=== PATIENT | female | born 1970 | race Caucasian/White ===

== ENCOUNTER → 2016-08-18 | Outpatient (CLI) | payer BC ==
[2016-08-18 16:49] LABS: Basophils % (A) 0 %; CH 32.2; CHCM 34.2; Eosinophils # (A) 0.1 k/uL (0-0.7); Eosinophils % (A) 2 %; HCT 43.9 % (34.0-46.0); HDW 2.39; HGB 14.4 gm/dL (11.4-16.0); Luc % (Auto) 3; Lymphocytes # (A) 2.9 k/uL (1.0-4.8); Lymphocytes % (A) 43 %; MCH 31.1 pg (25.0-35.0); MCHC 32.9 g/dL (31.0-37.0); MCV 94.4 fL (80.0-100.0); Mean Platelet Volume 6.3; Monocytes # (A) 0.3 k/uL (0-1.0); Monocytes % (A) 5 %; Neutrophils # (A) 3.2 k/uL (1.3-7.7); Neutrophils % (A) 47 %; RBC 4.65 m/uL (3.80-5.40); RDW 12.3 % (11.5-15.5); WBC 6.7 k/uL (3.8-10.6); WBC (Perox) 6.54
[2016-08-18 16:58] LABS: ALT 25 U/L (9-52); AST 19 U/L (14-36); Alkaline Phosphatase 58 U/L (38-126); Anion Gap 10 mmol/L; Blood Urea Nitrogen 10 mg/dL (7-17); C Reactive Protein <5.0 mg/L (<10.0); Carbon Dioxide 25 mmol/L (22-30); Chloride 105 mmol/L (98-107); Glucose 102 mg/dL (74-99); Non-African American GFR(MDRD) >60 (>60 ml/min/1.73 sqM); Potassium 3.9 mmol/L (3.5-5.1); Rheumatoid Factor, Qnt <9 IU/mL (<12); Sodium 140 mmol/L (137-145); Total Bilirubin 0.6 mg/dL (0.2-1.3); Total Protein 6.7 g/dL (6.3-8.2); Uric Acid 3.2 mg/dL (3.7-7.4)
[2016-08-18 17:43] LABS: Vitamin B12 459 pg/mL (239-931)
[2016-08-18 18:22] LABS: Erythrocyte Sedimentation Rate 5 mm/hr (0-20)
[2016-08-19 00:40] LABS: ANA w/Reflex to Titer NEGATIVE (NEGATIVE)
== END | disposition home or self-care (01) ==
LOC: LABWHC1 16:07
PROVIDERS: ATTEND Internal Medicine
DX: M15.0 Primary generalized (osteo)arthritis (principal); E03.9 Hypothyroidism, unspecified; E55.9 Vitamin D deficiency, unspecified; R53.83 Other fatigue
CPT/HCPCS: 36415; 80053; 82306; 82607; 84443; 84550; 85025; 85652; 86038; 86140; 86431

== ENCOUNTER → 2017-04-22 | Outpatient (CLI) | payer BC ==
--- NOTE | 2017-04-22 12:44 | US ---
EXAMINATION TYPE: US venous doppler duplex LE DATE OF EXAM: 04/22/2017 11:29 AM COMPARISON: NONE CLINICAL HISTORY: Leg Swelling M79.673/M25.579. Pt states bilateral leg swelling SIDE PERFORMED: Bilateral TECHNIQUE: The lower extremity deep venous system is examined utilizing real time linear array sonog wilbert with graded compression, doppler sonography and color-flow sonography. VESSELS IMAGED: External Iliac Vein (EIV) Common Femoral Vein Deep Femoral Vein Greater Saphenous Vein * Femoral Vein Popliteal Vein Small Saphenous Vein * Proximal Calf Veins (* superficial vessels) Right Leg: Negative for DVT Left Leg: Negative for DVT Results called to Dr. Jaquez at time of exam IMPRESSION: 1. No ultrasound evidence deep venous thrombosis bilateral lower extremities.
--- NOTE | 2017-04-22 13:49 | XR ---
EXAMINATION TYPE: XR ankle complete bilateral DATE OF EXAM: 04/22/2017 COMPARISON: NONE HISTORY: Lung cancer observation for metastases, bilateral ankle and foot pain TECHNIQUE: 3 views bilateral ankles each FINDINGS: There appears to be a bone island within the anterior talus on the lateral projection of th e left ankle. Plantar calcaneal heel spur is present on the left. Mild soft tissue prominence may be present soft tissue appearance is symmetrical with the contralateral right side. No suspicious osseou s abnormality is evident. IMPRESSION: 1. No suspicious osseous abnormality. 2. Mild diffuse bilateral soft tissue swelling may be present.
--- NOTE | 2017-04-22 15:38 | XR ---
EXAMINATION TYPE: XR foot complete bilateral DATE OF EXAM: 04/22/2017 COMPARISON: NONE HISTORY: Lung cancer bilateral foot pain TECHNIQUE: 3 views bilateral feet each FINDINGS: Right foot: Hallux valgus deformity is present. Varus Deformity distal fifth digit is pres ent. Joint space narrowing at the first metatarsophalangeal joint space is present. Joint spaces othe rwise appear preserved. No acute fractures are evident. Left foot: No acute fractures or dislocations are evident. Joint spaces are preserved. Plantar calcan eal heel spur is present. IMPRESSION: 1. Hallux valgus deformity with foot first digit. 2. Plantar calcaneal heel spur left foot.
== END ==
LOC: RADUSWWP 11:05
PROVIDERS: ATTEND Internal Medicine
DX: M25.579 Pain in unspecified ankle and joints of unspecified foot (principal); M79.673 Pain in unspecified foot; M77.32 Calcaneal spur, left foot; M77.31 Calcaneal spur, right foot; M20.12 Hallux valgus (acquired), left foot; M20.11 Hallux valgus (acquired), right foot
CPT/HCPCS: 93970

== ENCOUNTER → 2017-12-13 | Outpatient (CLI) | payer BC ==
--- NOTE | 2017-12-14 09:43 | MM ---
Reason for exam: screening (asymptomatic). Last mammogram was performed 2 years and 6 months ago. History: Patient is postmenopausal. Took hormonal contraceptives for 6 years beginning at age 22. Physical Findings: A clinical breast exam by your physician is recommended on an annual basis and results should be correlated with mammographic findings. MG 3D Screening Mammo W/Cad Bilateral CC and MLO view(s) were taken. Prior study comparison: June 17, 2015, bilateral MG 3d screening mammo w/cad. July 11, 2013, bilateral digital screening mammo w/CAD. The breast tissue is extremely dense which could obscure a lesion on mammography. Finding: There are typically benign calcifications in both breasts. Previous mammotome biopsy in the right breast. No significant changes in finding since June 17, 2015 and July 11, 2013. ASSESSMENT: Benign, BI-RAD 2 RECOMMENDATION: Routine screening mammogram of both breasts in 1 year.
== END | disposition home or self-care (01) ==
LOC: RADMAMWWP 07:15
PROVIDERS: ATTEND Obstetrics & Gynecology
DX: Z12.31 Encounter for screening mammogram for malignant neoplasm of breast (principal)
CPT/HCPCS: 77063; 77067

== ENCOUNTER → 2017-12-30 | Outpatient (CLI) | payer BC ==
--- NOTE | 2017-12-31 07:09 | CT ---
EXAMINATION TYPE: CT soft tissue neck w con DATE OF EXAM: 12/30/2017 HISTORY: Palpable lumps on neck and neck pain. COMPARISON: NONE CT DLP: 326 mGycm. Automated Exposure Control for Dose Reduction was Utilized. TECHNIQUE: CT scan of the neck is performed with IV Contrast, patient injected with 100ml mL of Isov ue 300, axial images are obtained, coronal and sagittal reformatted images are reviewed. FINDINGS: Metallic BBs are placed at level of palpable abnormalities in the right neck seen best on axial image 52 and 60. There is no suspicious solid or cystic mass or abnormal fluid collection identified at th shanelle levels. Airway: No gross abnormality seen. Parotid/submandibular glands: No gross abnormality seen. Carotid/Vascular Structures: No significant plaque is identified at carotid bulb level bilaterally. Osseous Structures: There is reversal of normal cervical curvature. There is mild to moderate spurrin g and disc space narrowing C4-C5, C5-C6, C6-C7 levels appreciated. There is levoconvex scoliotic curv ature centered in the upper thoracic spine seen on coronal images. Other: There are some scattered subcentimeter lymph nodes throughout the neck bilaterally. There is n o suspicious greater than 1 cm neck adenopathy identified. Areas of palpable abnormalities may correl ate with areas of small benign-appearing lymph nodes IMPRESSION: No suspicious mass or adenopathy is seen.
== END | disposition home or self-care (01) ==
LOC: RADCTMAIN 18:11
PROVIDERS: ATTEND Internal Medicine
DX: R59.0 Localized enlarged lymph nodes (principal)
CPT/HCPCS: 70491; Q9967

== ENCOUNTER → 2019-08-08 | Outpatient (CLI) | payer BC ==
--- NOTE | 2019-08-08 12:18 | US ---
EXAMINATION TYPE: US venous doppler duplex LE RT DATE OF EXAM: 08/08/2019 12:07 PM COMPARISON: NONE CLINICAL HISTORY: 49-year-old female with right LEG, M79.661 Pain in right leg R22.41 Swelling. Right leg pain, long plane trips. SIDE PERFORMED: Right TECHNIQUE: The lower extremity deep venous system is examined utilizing real time linear array sonog wilbert with graded compression, doppler sonography and color-flow sonography. FINDINGS: VESSELS IMAGED: External Iliac Vein (EIV) Common Femoral Vein Deep Femoral Vein Greater Saphenous Vein * Femoral Vein Popliteal Vein Small Saphenous Vein * Proximal Calf Veins (* superficial vessels) Right Leg: Negative for DVT IMPRESSION: No evidence for DVT within the right lower extremity imaged from the groin to the upper calf.
== END | disposition home or self-care (01) ==
LOC: RADUSWWP 11:50
PROVIDERS: ATTEND Internal Medicine
DX: M79.661 Pain in right lower leg (principal); R22.41 Localized swelling, mass and lump, right lower limb; Z88.5 Allergy status to narcotic agent

== ENCOUNTER → 2019-12-19 | Outpatient (CLI) | payer BC | END | disposition home or self-care (01) | LOC: LABWHC1 14:23 | PROVIDERS: ATTEND Otolaryngology | DX: R53.83 Other fatigue (principal); M25.50 Pain in unspecified joint | CPT/HCPCS: 36415; 85652; 86038; 86431 ==

== ENCOUNTER → 2019-12-28 | Outpatient (CLI) | payer BC ==
--- NOTE | 2019-12-28 12:36 | CT ---
EXAMINATION TYPE: CT soft tissue neck w con DATE OF EXAM: 12/28/2019 HISTORY: right side neck pain, throat pain, ear pain, enlarged right side tonsil COMPARISON: Prior CT neck December 30, 2017 CT DLP: 307.8 mGycm. Automated Exposure Control for Dose Reduction was Utilized. TECHNIQUE: CT scan of the neck is performed with IV Contrast, patient injected with 100 mL of Isovue 300, axial images are obtained, coronal and sagittal reformatted images are reviewed. FINDINGS: Airway: No gross abnormality seen. Parotid/submandibular glands: No gross abnormality seen. Carotid/Vascular Structures: No significant plaque or stenosis at common or internal carotid arteri es bilaterally. Osseous Structures: Persistent reversal of normal cervical curvature with moderate disc space narrowi ng and mild to moderate spurring C4-C5 through the C6-C7 levels. Slight S-shaped scoliosis on coronal images . Multilevel uncovertebral facet degenerative changes are present on the axial images. Other: ParaPharyngeal fat spaces are maintained bilaterally. No significant change from prior CT. There are few prominent but subcentimeter lymph nodes throughout the neck bilaterally. No definitive new suspicious greater than 1 cm neck adenopathy. One of largest lymph nodes for reference right subm andibular region anterior to the internal jugular vein measures 8 x 8 mm axial image 49 not significa ntly changed from prior study. No suspicious opacification mastoid air cells. Paranasal sinuses are clear. IMPRESSION: No new suspicious mass or adenopathy.
== END | disposition home or self-care (01) ==
LOC: RADCTMAIN 11:49
PROVIDERS: ATTEND Otolaryngology
DX: R22.1 Localized swelling, mass and lump, neck (principal)
CPT/HCPCS: 70491; Q9967

== ENCOUNTER 2020-03-28 08:26 | Day surgery (SDC) | payer BC ==
[2020-03-27 08:38] VITALS: BMI 29.8
[~2020-03-28 08:26] MED LIST: LACTATED RINGERS 1,000 ML IV SCH; LIDOCAINE 1% (10MG/ML) FOR IV START INTRADERMA PRN
[2020-03-28 08:36] VITALS: TEMP 97.1
[2020-03-28] MEDS ORDERED: LIDOCAINE 1% INJ 10MG/ML (20 ML MDV) ONE (09:25)
[2020-03-28] MEDS ORDERED: PROPOFOL 10 MG/ML 20 ML VIAL IV ONE (09:25)
--- NOTE | 2020-03-28 10:18 | P.PCN ---
Date of Procedure: 03/28/20 Description of Procedure: Brief history: Patient is a pleasant 50-year-old female presenting for outpatient EGD and colonoscopy for evaluation of GERD and screening for malignant neoplasm colon. Patient reports problems with heartburn. Improved after initiation of omeprazole therapy, however she still has some breakthrough symptoms. No prior colonoscopy. Procedure performed: Esophagogastroduodenoscopy with biopsy Colonoscopy Estimated blood loss: Minimal. Preoperative diagnosis: GERD, screening for malignant neoplasm of the colon, no prior colonoscopy Anesthesia: MAC Procedure: After informed consent was obtained from the patient was brought into the endoscopy unit and IV sedation was administered by anesthesia under continuous monitoring. Initially upper endoscopy was done. The Olympus GF 190 video endoscope was inserted into the mouth and esophagus intubated without any difficulty and was gradually advanced into the stomach and duodenum and carefully examined. The bulb and second part of the duodenum appeared normal, with biopsies taken. The scope was then withdrawn into the stomach adequately insufflated with air and upon careful examination the antrum and body, cardia and fundus appeared normal, except for some mild punctate erythema in the antrum and body suggestive of mild gastritis with biopsies taken. The scope was then withdrawn into the esophagus. The GE junction was located at 35 cm to the incisors, with biopsies taken. A 4 cm hiatal hernia was noted. It appeared regular with no erythema erosions or ulcerations. Rest of the esophagus appeared normal. Patient tolerated the procedure well. At this time the patient continued to remain sedation. Initial digital rectal examination was normal. Olympus CF 190 video colonoscope was then inserted into the rectum and gradually advanced to the cecum without any difficulty. Careful examination was performed as the scope was gradually being withdrawn. The prep was excellent. The cecum, ascending colon, transverse colon, descending colon, sigmoid colon and rectum appeared normal. Retroflexion was performed in the rectum and no lesions were noted. Patient tolerated the procedure well. Impression: 1. Mild gastritis. Moderate sized hiatal hernia. Biopsies of the antrum and body, GE junction and duodenum. 2. Mild sigmoid diverticulosis. Low-grade internal hemorrhoids. Recommendations: Findings of this examination were discussed with the patient as well as her fam tierney. Okay to resume diet. Okay to resume medications. Await pathology from biopsies. Would recommend repeat colonoscopy in 10 years for screening purposes, or sooner if signs or symptoms which warrant further evaluation develop. Continue PPI therapy.
[2020-03-28 10:29] VITALS: BP 130/89; PULSE 68; RESP 18
== END 2020-03-28 11:18 | disposition home or self-care (01) ==
LOC: ORWHC2ENDO 08:26
PROVIDERS: ATTEND Internal Medicine
DX: Z12.11 Encounter for screening for malignant neoplasm of colon (principal); K57.30 Diverticulosis of large intestine without perforation or abscess without bleeding; K64.8 Other hemorrhoids; K29.50 Unspecified chronic gastritis without bleeding; K21.0 Gastro-esophageal reflux disease with esophagitis; K44.9 Diaphragmatic hernia without obstruction or gangrene; I10 Essential (primary) hypertension; Z79.899 Other long term (current) drug therapy; Z90.49 Acquired absence of other specified parts of digestive tract; Z90.710 Acquired absence of both cervix and uterus
CPT/HCPCS: 88305; 43239; J2001; J2704; G0121; 45378

== ENCOUNTER → 2020-04-08 | Outpatient (CLI) | payer SELFPAY | END | disposition home or self-care (01) | LOC: LABWHC1 14:48 | PROVIDERS: ATTEND Otolaryngology | DX: J30.89 Other allergic rhinitis (principal) | CPT/HCPCS: 36415 ==

== ENCOUNTER → 2020-10-28 | Outpatient (CLI) | payer BC ==
--- NOTE | 2020-10-28 08:49 | CT ---
EXAMINATION TYPE: CT chest w con DATE OF EXAM: 10/28/2020 COMPARISON: NONE HISTORY: hiatal hernia CT DLP: 225.4 mGycm. Automated Exposure Control for Dose Reduction was Utilized. TECHNIQUE: CT scan of the thorax is performed following with IV Contrast, patient injected with 100 mL of Isovue 300. FINDINGS: LUNGS: Dependent atelectasis bilateral lower lobes. Mild parenchymal scarring in the left lung base. No suspicious consolidation or groundglass opacity. No pleural effusion or pneumothorax seen bilatera lly. No concerning pulmonary nodules or masses. . Tracheobronchial tree is patent. MEDIASTINUM: There are no greater than 1 cm hilar or mediastinal lymph nodes. No cardiomegaly or pe ricardial effusion is seen. Small sized hiatal hernia is confirmed on axial image 43. OTHER: Cholecystectomy clips. Slight scoliotic curvature in the spine. IMPRESSION: Small sliding-type hiatal hernia. No suspicious acute pulmonary process.
== END | disposition home or self-care (01) ==
LOC: RADCTMAIN 07:37
PROVIDERS: ATTEND Surgery
DX: K44.9 Diaphragmatic hernia without obstruction or gangrene (principal)
CPT/HCPCS: 71260; Q9967

== ENCOUNTER → 2021-01-07 | Outpatient (CLI) | payer BC ==
[2021-01-07 08:27] LABS: Basophils % (A) 1 %; Eosinophils # (A) 0.2 k/uL (0-0.7); Eosinophils % (A) 3 %; HCT 42.2 % (34.0-46.0); HGB 14.3 gm/dL (11.4-16.0); Lymphocytes # (A) 1.6 k/uL (1.0-4.8); Lymphocytes % (A) 35 %; MCHC 33.9 g/dL (31.0-37.0); MCV 94.4 fL (80.0-100.0); Mean Platelet Volume 6.6; Monocytes # (A) 0.3 k/uL (0-1.0); Monocytes % (A) 7 %; Neutrophils # (A) 2.5 k/uL (1.3-7.7); Neutrophils % (A) 53 %; Platelet Count 246 k/uL (150-450); RBC 4.47 m/uL (3.80-5.40); RDW 12.3 % (11.5-15.5); WBC 4.7 k/uL (3.8-10.6)
--- NOTE | 2021-01-07 09:40 | US ---
EXAMINATION TYPE: US thyroid st tissue head/neck DATE OF EXAM: 01/07/2021 COMPARISON: 12/28/2019 CT neck CLINICAL HISTORY: R22.1 Swelling, mass AND LUMP. Patient states seeing a left supraclavicular bulge w hen sitting up. Area of concern scanned. No prominent masses or lesions seen. Contralateral images taken. IMPRESSION: 1. At the site of palpable lump in the left supraclavicular region there is no cyst or mass. Contrala teral side was scanned and was similar in appearance.
== END | disposition home or self-care (01) ==
LOC: RADUSWWP 07:06
PROVIDERS: ATTEND Otolaryngology
DX: R22.1 Localized swelling, mass and lump, neck (principal)
CPT/HCPCS: 36415; 76536; 85025; 86038

== ENCOUNTER → 2021-03-03 | Outpatient (CLI) | payer BC ==
--- NOTE | 2021-03-05 13:42 | MM ---
Reason for exam: screening (asymptomatic). Last mammogram was performed 3 years and 3 months ago. History: Patient is postmenopausal. Took hormonal contraceptives for 6 years beginning at age 22. Physical Findings: A clinical breast exam by your physician is recommended on an annual basis and results should be correlated with mammographic findings. MG 3D Screening Mammo W/Cad Bilateral CC and MLO view(s) were taken. Prior study comparison: December 13, 2017, bilateral MG 3d screening mammo w/cad. June 17, 2015, bilateral MG 3d screening mammo w/cad. The breast tissue is heterogeneously dense. This may lower the sensitivity of mammography. Stable benign calcifications. There is no discrete abnormality. No significant changes when compared with prior studies. ASSESSMENT: Benign, BI-RAD 2 RECOMMENDATION: Routine screening mammogram of both breasts in 1 year.
--- NOTE | 2021-03-07 12:27 | BD ---
EXAMINATION TYPE: Axial Bone Density DATE OF EXAM: 03.03.2021 COMPARISON: NONE CLINICAL HISTORY: NOTHING AVAILABLE AT TIME OF THE VALUES INPUT ON , 03.06.2121.....[facility] Study in the last 2 weeks: Barium Study in the last week: : Height: Weight: FRAX RISK QUESTIONS: Alcohol (3 or more units per day): Family History (Parent hip fracture): Glucocorticoids (More than 3mos): (Ex: prednisone, prednisolone, methylprednisolone, dexamethasone, and hydrocortisone). History of Fracture in Adulthood: Secondary Osteoporosis: 1. Type 1 Diabetes: 2. Hyperthyroidism: 3. Menopause before 45: 4. Malnutrition: 5. Chronic liver disease: Rheumatoid Arthritis: Current Tobacco Use: RISK FACTORS HISTORY OF: Hip Fracture (Right/Left): When: Spine Fracture: When: History of Wrist Fracture: When: Surgery to Spine/Hip(right/left)/Wrist (right/left): When: Family History of Osteoporosis: Active: Diet low in dairy products/other sources of calcium: Postmenopausal woman: If Premenopausal, do you have irregular periods: Take estrogen and/or progesterone medications: How long: Lost more than 2 inches in height since high school: Frequent falls: Poor Health: Hyperparathyroidism: Adrenal Insufficiency: MEDICATIONS: Prednisone or other steroids: How Long: Thyroid Medications: Which medication: How Long: Osteoporosis Medications: Which medication: How Long: Additional Medications: Additional History: EXAM MEASUREMENTS: Bone mineral densitometry was performed using the [employer] System. Bone mineral density as measured about the Lumbar spine is: ----- L1-L4(G/cm2): 1.107 T Score Values are as follows: ----- L1: -0.5 ----- L2: -1.5 ----- L3: -0.2 ----- L4: -0.4 ----- L1-L4: -0.6 Bone mineral density FIRST BONE DENSITY AT [facility]......BASELINE STUDY Bone mineral density about the R hip (g/cm2): 0.954 Bone mineral density about the L hip (g/cm2): 0.958 T Score values are as follows: -----R Neck: -0.5 -----L Neck: -0.5 -----R Total: -0.4 -----L Total: -0.4 Bone mineral density FIRST BONE DENSITY AT [facility]........BASELINE STUDY FRAX%s: THERE IS A 3.8% CHANCE FOR A MAJOR OSTEOPOROTIC FX AND A 0.1% FOR HIP......PROBABILITY FOR FX IN 10 YRS TIME IMPRESSION: Normal (Values between +1 and -1 indicate normal bone mass). Consider repeating this study in 5 year s or sooner if there is some new clinical indication. NOTE: T-SCORE=SD OF THE YOUNG ADULT MEAN.
== END | disposition home or self-care (01) ==
LOC: RADMAMWWP 10:20
PROVIDERS: ATTEND Internal Medicine
DX: Z12.31 Encounter for screening mammogram for malignant neoplasm of breast (principal); Z78.0 Asymptomatic menopausal state; Z79.3 Long term (current) use of hormonal contraceptives
CPT/HCPCS: 77063; 77067; 77080

== ENCOUNTER → 2021-10-01 | Outpatient (CLI) | payer BC ==
--- NOTE | 2021-10-01 09:02 | US ---
EXAMINATION TYPE: US abdomen complete DATE OF EXAM: 10/01/2021 COMPARISON: Ultrasound dated 03/31/2010 CLINICAL HISTORY: R10.11 Rt upper quadrant pain. Right flank and RUQ pain for the past 3 weeks, histo ry of cholecystectomy. EXAM MEASUREMENTS: Liver Length: 13.2 cm Gallbladder Wall: Surgically absent CBD: 0.4 cm Spleen: 9.8 x 3.8 cm Right Kidney: 10.1 x 5.1 x 4.9 cm Left Kidney: 10.0 x 6.0 x 6.3 cm Pancreas: wnl Liver: wnl Gallbladder: Surgically absent Evidence for sonographic Parks's sign: No CBD: wnl Spleen: wnl Right Kidney: No hydronephrosis or masses seen Left Kidney: No hydronephrosis or masses seen Upper IVC: wnl Abd Aorta: wnl No abnormalities seen at this time. No definite hepatic focal lesion. Slightly heterogeneous hepatic parenchyma. The intrahepatic portio n of the IVC and proximal abdominal aorta are within normal limits. Previous cholecystectomy. Common bile duct is unremarkable. The visualized portions of the pancreas are homogenous. The spleen is un remarkable. Kidneys are symmetric and free of hydronephrosis. No renal lesions are seen. IMPRESSION: Previous cholecystectomy, otherwise unremarkable abdominal ultrasound.
== END | disposition home or self-care (01) ==
LOC: RADUSWWP 08:13
PROVIDERS: ATTEND Family Medicine
DX: R10.11 Right upper quadrant pain (principal); Z90.49 Acquired absence of other specified parts of digestive tract
CPT/HCPCS: 76700

== ENCOUNTER → 2023-09-28 | Outpatient (CLI) | payer BC ==
--- NOTE | 2023-10-04 12:25 | CT ---
EXAMINATION TYPE: CT sinus wo con CT DLP: 662.6 mGycm, Automated exposure control for dose reduction was used. DATE OF EXAM: 09/28/2023 9:16 AM COMPARISON: None. CLINICAL INDICATION:Female, 53 years old with history of J32.9 CHRONIC SINUSITIS; , chronic sinusitis TECHNIQUE: Multiple thin axial images were obtained through the paranasal sinuses without the use of IV contrast. Additional coronal and sagittal reformatted images were submitted for evaluation. Contrast used: none Oral contrast used: none FINDINGS: Frontal sinuses: Normally developed and aerated. Frontal Recess: Clear Maxillary Sinuses: Normally developed and aerated. Maxillary Infundibula([facility]): Clear, . Ethmoid sinuses: Normally developed and aerated. Ethmoidal notch: Protected and abutting the lateral lamina. Sphenoid sinuses: Normally aerated, with extension of pneumatization laterally into the sphenoid wing s. There is complete sellar sphenoid sinus pneumatization without evidence of dehiscence. No dehisce nce of carotid canal. No evidence of optic nerve dehiscence within the sphenoid sinus. Sphenoethmoida l recesses: Clear. Nasal septum: Mild to moderate S-shaped nasal septal deviation in the midportion.. Nasal Turbinates: Within normal limits. Mastoid air cells & middle ears: The air cells are clear. The middle ears are grossly unremarkable. Modified Soft tissues & Brain: Partially seen without gross abnormality. Globes are intact. Other: Cribriform plate demonstrates symmetric Keros classification type 2 cribriform plate. No evidence of bony dehiscence of skull base. Lamina papyracea is intact without evidence of remote orbital fracture or orbital prolapse into the e thmoid sinus. IMPRESSION: 1. No significant mucosal sinus disease. 2. No significant paranasal sinus fluid accumulation. 3. The ostiomeatal units, frontonasal and sphenoethmoidal recesses are clear.
== END | disposition home or self-care (01) ==
LOC: RADCTMAIN 08:57
PROVIDERS: ATTEND Otolaryngology
DX: J32.9 Chronic sinusitis, unspecified (principal)
CPT/HCPCS: 70486